=== PATIENT | female | born 1990 | race Caucasian/White ===

== ENCOUNTER 2019-08-26 23:37 | Emergency (ER) | payer SELFPAY ==
[~2019-08-26] VITALS: Ht 162.6 cm; Wt 100.0 kg
[~2019-08-26 23:37] MED LIST: DOCO200C3 PO; IBUP-1222 PO; OMEG1CAP6 PO; OXYC-302 PO; calcium PO
[2019-08-26 23:41] VITALS: BP 118/88
--- NOTE | 2019-08-27 01:59 | NUR ---
PT WOUND CLEANED PER ERP REQUEST. PT ANKLE PLACED IN SPLINT AND PT GIVEN D/C AND F/U INSTRUCTIONS. PT VERBALIZES UNDERSTANDING OF EDUCATION. PT PROVIDED CRUTCHES WHICH WERE ADJUSTED TO CORRECT HEIGHT OF PT. PT ABLE TO DEMONSTRATE PROPER USE OF CRUTCHES TO AMBULATE. PT USES CRUTCHES TO AMBULATE TO REGISTRATION DESK FOR D/C HOME AND DENIES ANY OTHER NEEDS PERTAINING TO THIS VISIT.
== END 2019-08-27 02:26 | disposition home or self-care (01) ==
LOC: ED 08-27 00:07
DX: S82.65XA Nondisplaced fracture of lateral malleolus of left fibula, initial encounter for closed fracture (principal); S82.55XA Nondisplaced fracture of medial malleolus of left tibia, initial encounter for closed fracture; S90.412A Abrasion, left great toe, initial encounter; W01.0XXA Fall on same level from slipping, tripping and stumbling without subsequent striking against object, initial encounter; Y93.89 Activity, other specified; Y92.098 Other place in other non-institutional residence as the place of occurrence of the external cause; Y99.8 Other external cause status
CPT/HCPCS: 29515; 99283